=== PATIENT | female | born 1955 | race Caucasian/White ===

== ENCOUNTER 2019-10-09 14:17 | Outpatient (CLI) | payer MEDICAID ==
[~2019-10-09] VITALS: Ht 157.5 cm; Wt 62.1 kg
--- NOTE | 2019-10-09 16:30 | Consultation ---
DATE OF CONSULTATION: 10/09/2019 CONSULTING PHYSICIAN: Elroy Haley M.D. CHIEF COMPLAINT: Dysphagia, history of colonic polyps. PAST MEDICAL HISTORY: 1. Anxiety. 2. Depression. 3. History of chronic back pain. 4. History of colonic polyps. 5. Diverticulosis. PAST SURGICAL HISTORY: Cosmetic surgeries. MEDICATIONS: Naprosyn, Wellbutrin, Cymbalta. FAMILY HISTORY: Father was smoker. Mom was diabetic. SOCIAL HISTORY: The patient denies any tobacco or IV drug abuse, but drinks socially. ALLERGIES: To adhesive tape. REVIEW OF SYSTEMS: A 10-point review of systems was performed and pertinent positives dictated in HPI. PHYSICAL EXAMINATION: VITAL SIGNS: Temperature 97.9, pulse 79, respirations 20, blood pressure 144/92. HEENT: Normocephalic and atraumatic. Sclerae anicteric. NECK: Supple. No evidence of obvious lymphadenopathy. CARDIOVASCULAR: Regular rate and rhythm. Plus S1, S2. LUNGS: Clear to auscultation bilaterally. ABDOMEN: Positive bowel sounds. Soft and nontender. No rebound. No guarding. No peritoneal sign. EXTREMITIES: No cyanosis. No clubbing. No edema. ASSESSMENT AND PLAN: This is a 64-year-old female with solid dysphagia, mostly in the oropharynx area, recent ER visit, also colonoscopy over 3 or 4 years ago had 3 polyps. The patient would need endoscopy for evaluation of solid dysphagia and needs a colonoscopy for history of colonic polyps. The patient was given instruction for colonoscopy. The prep was explained to her. The risks and benefits of procedure explained to her. We will plan to do the procedure when authorization is obtained. Elroy Haley M.D. DR: OSCAR JOB#: [id number] CC:
[2019-10-10] MEDS ORDERED: NAPROXEN500 M2 ORAL (09:04)
[2019-10-10] MEDS ORDERED: CYMBALTA60 MG ORAL (09:04)
[2019-10-10] MEDS ORDERED: BUPROPION XL300 MG ORAL (09:04)
[2019-10-10 09:07] VITALS: BP 145/92
== END 2019-10-09 16:17 | disposition home or self-care (01) ==
LOC: PAN 14:17
DX: R13.10 Dysphagia, unspecified (principal); Z86.010 Personal history of colon polyps; F41.9 Anxiety disorder, unspecified; F32.9 Major depressive disorder, single episode, unspecified; K57.90 Diverticulosis of intestine, part unspecified, without perforation or abscess without bleeding
CPT/HCPCS: G0463

== ENCOUNTER 2020-01-25 13:01 | Outpatient (CLI) | payer MEDICAID ==
[~2020-01-25 13:01] MED LIST: BUPROPION XL300 MG ORAL; CYMBALTA60 MG ORAL; NAPROXEN500 M2 ORAL
--- NOTE | 2020-01-25 19:30 | Progress Note ---
DATE: 01/25/2020 POSTPROCEDURE FOLLOWUP PHYSICAL EXAMINATION: GENERAL: A well-developed female in no acute distress. VITAL SIGNS: Stable. HEENT: Normocephalic and atraumatic. Sclerae anicteric. NECK: Supple. No evidence of obvious lymphadenopathy. CARDIOVASCULAR: Regular rhythm. Plus S1 and S2. LUNGS: Clear to auscultation bilaterally. ABDOMEN: Positive bowel sounds. Soft and nontender. No rebound. No guarding. No peritoneal sign. EXTREMITIES: No cyanosis, no clubbing, no edema. ASSESSMENT AND PLAN: This is a 64-year-old female who had endoscopy and colonoscopy done. EGD showed evidence of gastritis, H. pylori negative. Colonoscopy showed evidence of one colonic polyp and left-sided diverticulosis without any obvious diverticulitis. The patient was told to need a repeat colonoscopy in 5 years. Meanwhile, if she has any signs and symptoms of diverticulitis to go to the emergency room. She was explained the signs and symptoms of diverticulitis in detail. The patient is also complaining of some oral dysphagia and some pain in her neck. She was recommended to follow with her PMD to be seen by ENT for followup. Elroy Haley M.D. DR: [place] JOB#: [id number] CC:
== END 2020-01-25 15:01 | disposition home or self-care (01) ==
LOC: PAN 13:01
DX: K29.50 Unspecified chronic gastritis without bleeding (principal); R13.10 Dysphagia, unspecified; M54.2 Cervicalgia; K63.5 Polyp of colon; K57.90 Diverticulosis of intestine, part unspecified, without perforation or abscess without bleeding
CPT/HCPCS: 99212